=== PATIENT | male | born 1980 | race Caucasian/White ===

== ENCOUNTER 2018-01-09 13:09 | Inpatient (IN) | payer BC ==
[~2018-01-09] VITALS: Ht 167.6 cm; Wt 63.7 kg
[2018-01-09 14:10] VITALS: BP 142/82
[2018-01-09 14:53] LABS: BILIRUBIN NEGATIVE (NEGATIVE); BLOOD NEGATIVE (NEGATIVE); CLARITY CLEAR (CLEAR); COLOR YELLOW (YELLOW); GLUCOSE NEGATIVE (NEGATIVE); KETONE NEGATIVE (NEGATIVE); LEUKO ESTERASE NEGATIVE (NEGATIVE); NITRITE NEGATIVE (NEGATIVE); PH 5.5 (5.0-9.0); SPECIFIC GRAVITY <= 1.005 (1.005-1.030); UROBILINOGEN 0.2 E.U./dl (0.2-1.0)
[2018-01-09 15:01] LABS: BASO # 0.1 10*3/uL (0.0-0.1); BASO % 1.3 % (0.0-1.0); EOS # 0.2 10*3/uL (0.0-0.4); EOS % 2.8 % (1.0-4.0); HEMATOCRIT 46.4 % (42.0-52.0); HEMOGLOBIN 16.5 g/dl (14.0-18.0); LYMPH # 2.6 10*3/uL (1.3-4.4); LYMPH % 38.1 % (27.0-41.0); MEAN CELL VOLUME 92.1 fl (80.0-94.0); MEAN CORPUSCULAR HGB 32.7 pg (27.0-31.0); MEAN CORPUSCULAR HGB CONC 35.6 g/dl (33.0-37.0); MEAN PLATELET VOLUME 9.9 fl (9.6-12.3); MONO # 0.8 10*3/uL (0.1-1.0); MONO % 11.2 % (3.0-9.0); NEUT # 3.1 10*3/uL (2.3-7.9); NEUT % 46.3 % (47.0-73.0); PLATELET COUNT AUTOMATED 178 10*3/uL (130-400); RED BLOOD COUNT 5.04 10*6/uL (4.50-5.90); RED CELL DISTRI WIDTH 13.6 % (0-14.5); WHITE BLOOD COUNT 6.8 10*3/uL (4.8-10.8)
[2018-01-09 15:02] LABS: BACTERIA TRACE; EPITHELIAL CELLS 0-2; RBC 0-2 rbc/hpf (0-2); WBC 0-2 wbc/hpf (0-5)
[2018-01-09 15:08] LABS: INTERNATIONAL NORM RATIO 0.9 (2.0-3.5)
[2018-01-09 15:15] LABS: ALBUMIN 4.2 gm/dl (3.1-4.5); ALKALINE PHOSPHATASE 100 U/L (45-117); BUN 4 mg/dl (7-24); CHLORIDE 105 mmol/L (98-107); CREATININE 0.66 mg/dL (0.70-1.30); SGOT/AST 98 IU/L (3-35); SGPT/ALT 69 U/L (12-78); SODIUM 137 mmol/L (136-145); TOTAL PROTEIN 9.1 gm/dL (6.4-8.2)
[2018-01-09 16:00] VITALS: BP 128/94
[2018-01-09 20:00] VITALS: BP 113/71; BP 120/68
[2018-01-10] VITALS: BP 123/77
[2018-01-10 08:00] VITALS: BP 110/80
[2018-01-10 11:50] LABS: URINE AMPHETAMINES < 1000 (1000ng/ml); URINE BARBITURATES < 200 (200ng/ml); URINE COCAINE < 300 (300ng/ml); URINE METHADONE < 300 (300ng/ml); URINE OPIATES < 300 (300ng/ml)
[2018-01-10 11:52] LABS: URINE BENZODIAZEPINES > 200 (200ng/ml); URINE CANNABINOIDS (THC) < 50 (50ng/ml)
[2018-01-10 12:00] VITALS: BP 140/81
[2018-01-10 12:07] LABS: URINE PHENCYCLIDINE < 25 (25ng/ml)
[2018-01-10 16:00] VITALS: BP 122/89
[2018-01-10 20:00] VITALS: BP 140/94
[2018-01-11] VITALS: BP 131/85
[2018-01-11 06:57] LABS: BUN 5 mg/dl (7-24); CHLORIDE 105 mmol/L (98-107); CREATININE 0.79 mg/dL (0.70-1.30)
[2018-01-11 07:04] LABS: BASO % 1.1 % (0.0-1.0); EOS # 0.2 10*3/uL (0.0-0.4); EOS % 5.8 % (1.0-4.0); LYMPH # 1.9 10*3/uL (1.3-4.4); LYMPH % 51.8 % (27.0-41.0); MEAN CELL VOLUME 94.9 fl (80.0-94.0); MEAN CORPUSCULAR HGB 32.4 pg (27.0-31.0); MEAN CORPUSCULAR HGB CONC 34.1 g/dl (33.0-37.0); MEAN PLATELET VOLUME 10.7 fl (9.6-12.3); MONO # 0.4 10*3/uL (0.1-1.0); MONO % 11.8 % (3.0-9.0); NEUT # 1.1 10*3/uL (2.3-7.9); NEUT % 29.5 % (47.0-73.0); RED BLOOD COUNT 4.32 10*6/uL (4.50-5.90); RED CELL DISTRI WIDTH 13.4 % (0-14.5); WHITE BLOOD COUNT 3.7 10*3/uL (4.8-10.8)
[2018-01-11 07:06] LABS: SODIUM 141 mmol/L (136-145)
[2018-01-11 07:09] LABS: POTASSIUM 2.9 mmol/L (3.5-5.1)
[2018-01-11 07:10] LABS: PLATELET COUNT AUTOMATED 121 10*3/uL (130-400)
[2018-01-11 08:00] VITALS: BP 114/86
[2018-01-11] MEDS ORDERED: CHLORDIAZEPOXID25 M1 PO (10:54)
== END 2018-01-11 11:23 | disposition home or self-care (01) | DRG 897 ==
LOC: 5E 13:09
PROVIDERS: Podiatrist Primary Podiatric Medicine
DX: F10.230 Alcohol dependence with withdrawal, uncomplicated (principal); R03.0 Elevated blood-pressure reading, without diagnosis of hypertension; R00.0 Tachycardia, unspecified; R74.0 Nonspecific elevation of levels of transaminase and lactic acid dehydrogenase [LDH]; F41.9 Anxiety disorder, unspecified; F17.210 Nicotine dependence, cigarettes, uncomplicated; Y90.6 Blood alcohol level of 120-199 mg/100 ml; Z88.0 Allergy status to penicillin; Z88.2 Allergy status to sulfonamides; Z71.6 Tobacco abuse counseling

== ENCOUNTER 2018-02-14 13:06 | Inpatient (IN) | payer BC ==
[~2018-02-14] VITALS: Ht 168 cm; Wt 64.0 kg
[~2018-02-14 13:06] MED LIST: CHLORDIAZEPOXID25 M1 PO
--- NOTE | 2018-02-14 14:15 | NUR ---
A 38, admitted to 5E, under the services of FANNY Eli DO with a diagnosis of ALCOHOL ABUSE. Chief complaint is ALCOHOL ABUSE. Patient arrived via OTHER from [place]. Initial assessment completed. Vital signs taken and recorded. FANNY ELI DO notified of admission to the unit. Orders received. See assessment for past medical history, medications and allergies. Patient and/or family oriented to unit. [facility] 5E visitation policy reviewed. Clothing/patient valuable form completed. DECLINES FLU VACCINATION. SKIN INTACT WITH NO WOUNDS BALJINDER ALCANTARA
--- NOTE | 2018-02-14 14:16 | NUR ---
PATIENT MEETS [facility], CINA=15. REFERRAL OPTIONS WERE DISCUSSED WITH PATIENT. PATIENT IS INTERESTED IN GOING TO AN OUTPATIENT PROVIDER THAT TREATS BOTH SUBSTANCE USE AND MENTAL HEALTH DISORDERS. [facility] [employer] WILL LOCATE A PROVIDER CLOSE TO THE PATIENT'S HOME THAT ACCEPTS HIS INSURANCE. EUGENIA AYERS MS CASING MATERIAL WEIGHER
[2018-02-14 14:40] VITALS: BP 154/89
[2018-02-14 14:42] LABS: BASO # 0.1 10*3/uL (0.0-0.1); BASO % 1.4 % (0.0-1.0); EOS # 0.2 10*3/uL (0.0-0.4); EOS % 2.3 % (1.0-4.0); HEMATOCRIT 50.2 % (42.0-52.0); HEMOGLOBIN 17.9 g/dl (14.0-18.0); LYMPH # 2.1 10*3/uL (1.3-4.4); LYMPH % 32.5 % (27.0-41.0); MEAN CELL VOLUME 90.6 fl (80.0-94.0); MEAN CORPUSCULAR HGB 32.3 pg (27.0-31.0); MEAN CORPUSCULAR HGB CONC 35.7 g/dl (33.0-37.0); MEAN PLATELET VOLUME 10.4 fl (9.6-12.3); MONO # 0.7 10*3/uL (0.1-1.0); MONO % 10.4 % (3.0-9.0); NEUT # 3.4 10*3/uL (2.3-7.9); NEUT % 53.1 % (47.0-73.0); PLATELET COUNT AUTOMATED 162 10*3/uL (130-400); RED BLOOD COUNT 5.54 10*6/uL (4.50-5.90); RED CELL DISTRI WIDTH 14.5 % (0-14.5); WHITE BLOOD COUNT 6.4 10*3/uL (4.8-10.8)
[2018-02-14] MEDS ORDERED: NALTREXONE50 MG PO (14:44)
[2018-02-14] MEDS ORDERED: VISTARIL25 M2 PO (14:44)
[2018-02-14 14:57] LABS: ALKALINE PHOSPHATASE 90 U/L (45-117); BUN 4 mg/dl (7-24); CHLORIDE 102 mmol/L (98-107); CREATININE 0.65 mg/dL (0.70-1.30); POTASSIUM 4.1 mmol/L (3.5-5.1); SGOT/AST 71 IU/L (3-35); SGPT/ALT 61 U/L (12-78); SODIUM 135 mmol/L (136-145); TOTAL PROTEIN 9.1 gm/dL (6.4-8.2)
[2018-02-14 15:03] LABS: INTERNATIONAL NORM RATIO 0.9 (2.0-3.5)
--- NOTE | 2018-02-14 15:18 | NUR ---
MED REC UPDATED USING INFORMATION PROVIDED BY THE PATIENT; HE HAS PICTURES OF HIS PILL BOTTLES ON HIS PHONE.
[2018-02-14 16:00] VITALS: BP 129/81
[2018-02-14 16:20] LABS: URINE AMPHETAMINES < 1000 (1000ng/ml); URINE BARBITURATES < 200 (200ng/ml); URINE BENZODIAZEPINES < 200 (200ng/ml); URINE CANNABINOIDS (THC) < 50 (50ng/ml); URINE COCAINE < 300 (300ng/ml); URINE METHADONE < 300 (300ng/ml); URINE OPIATES < 300 (300ng/ml); URINE PHENCYCLIDINE < 25 (25ng/ml)
[2018-02-14 20:00] VITALS: BP 127/87
[2018-02-15] VITALS: BP 133/85
--- NOTE | 2018-02-15 07:35 | NUR ---
PT SLEEPING. RESPS REG/EASY WITH NO DISTRESS. BEDSIDE REPORT RECEIVED FROM ANDREEA GUERRIER. BED LOW
[2018-02-15 08:00] VITALS: BP 121/74
--- NOTE | 2018-02-15 09:06 | NUR ---
24 HR CHART CHECK COMPLETE
[2018-02-15 12:00] VITALS: BP 132/95
[2018-02-15 16:00] VITALS: BP 135/95
--- NOTE | 2018-02-15 16:35 | NUR ---
PATIENT HAS BEEN SCHEDULED TO GO TO [facility] FOR OUTPATIENT COUNSELING. PATIENT'S APPOINTMENT IS SCHEDULED FOR FEBRUARY 27, 2017 AT 9:45 AM. PATIENT IS AWARE AND AGREES WITH HIS AFTERCARE PLAN. EUGENIA AYERS MS SHALE MINER BLASTING
[2018-02-15 20:00] VITALS: BP 136/78
[2018-02-16] VITALS: BP 122/67
[2018-02-16 08:00] VITALS: BP 117/81
--- NOTE | 2018-02-16 08:59 | NUR ---
PATIENT LEFT AGAINST [facility] AT THIS TIME DUE TO PERSONAL ISSUES AT HOME. NOTIFIED REANNA TORRES AND SHIFT DIRECTOR MARIE. PATIENT'S HEPLOCK DISCONTINUED AND PT AMBULATORY OFF FLOOR.
== END 2018-02-16 08:59 | disposition left against medical advice (07) | DRG 894 ==
LOC: 5E 13:06
PROVIDERS: Internal Medicine; ADMIT Internal Medicine
DX: F10.239 Alcohol dependence with withdrawal, unspecified (principal); E87.1 Hypo-osmolality and hyponatremia; F41.9 Anxiety disorder, unspecified; R74.0 Nonspecific elevation of levels of transaminase and lactic acid dehydrogenase [LDH]; Z53.21 Procedure and treatment not carried out due to patient leaving prior to being seen by health care provider; Z72.0 Tobacco use; Z71.6 Tobacco abuse counseling; Z88.0 Allergy status to penicillin; Z88.2 Allergy status to sulfonamides; Z79.899 Other long term (current) drug therapy